=== PATIENT | male | born 1965 | race Caucasian/White ===

== ENCOUNTER 2021-09-14 03:46 | Emergency (ER) | payer OTHER ==
[2021-09-14] MEDS ORDERED: Lidocaine 2% Viscous Solution 15 ML UD PO ONE (04:35)
[2021-09-14] MEDS ORDERED: Acetaminophen/HYDROcodone 325-5 MG Tab PO ONE (04:36)
[2021-09-14 05:16] LABS: CORONAVIRUS COVID-19 NAA POSITIVE (NEGATIVE); INFLUENZA A NAA NEGATIVE (NEGATIVE); INFLUENZA B NAA NEGATIVE (NEGATIVE)
[2021-09-14 05:39] VITALS: BP 142/84; PULSE 96
== END 2021-09-14 05:39 | disposition home or self-care (01) ==
LOC: MW.ED 03:46
DX: U07.1 COVID-19 (principal); K02.9 Dental caries, unspecified; Z72.0 Tobacco use
CPT/HCPCS: 0240U; 99283; A9270

== ENCOUNTER 2022-07-09 13:37 | Emergency (ER) | payer OTHER ==
[2022-07-09] MEDS ORDERED: Sodium Chloride 0.9% 10 ML Syringe FLUSH PRN (13:39)
[2022-07-09] MEDS ORDERED: Sodium Chloride 0.9% 1,000 ML IV ONE (13:39)
[2022-07-09] MEDS ORDERED: Sodium Chloride 0.9% 2.5 ML Syringe FLUSH PRN (13:39)
[2022-07-09] MEDS ORDERED: Aspirin 81 MG Tab.Chew PO ONE (13:47)
[2022-07-09 14:31] LABS: CARBON DIOXIDE,CO2 28.5 mmol/L (21.0-32.0); POTASSIUM,K 3.6 mmol/L (3.5-5.1)
[2022-07-09 15:38] VITALS: BP 133/74; PULSE 78
== END 2022-07-09 15:36 | disposition home or self-care (01) ==
LOC: MW.ED 13:37
DX: R07.89 Other chest pain (principal)
CPT/HCPCS: 36415; 71045; 80053; 81003; 84484; 85025; 93005; 96360; 99285; A9270; J3490; J7030

== ENCOUNTER 2022-08-06 06:33 | Day surgery (SDC) | payer OTHER ==
[~2022-08-06 06:33] MED LIST: Lactated Ringers 1,000 ML IV SCH; Sodium Chloride 0.9% 10 ML Syringe FLUSH PRN; Sodium Chloride 0.9% 2.5 ML Syringe FLUSH PRN; Sodium Chloride 0.9% 20 ML SDV IV PRN
[2022-08-06] MEDS ORDERED: Ropivacaine 0.5% 5 MG/ML 30 ML SDV ONE (07:28)
[2022-08-06] MEDS ORDERED: Bupivacaine 0.5% 30 ML SDV ONE (07:28)
[2022-08-06] MEDS ORDERED: Propofol 200 MG/20 ML SDV ONE (07:33)
[2022-08-06] MEDS ORDERED: fentaNYL 100 MCG/2 ML SDV ONE (07:33)
[2022-08-06] MEDS ORDERED: Rocuronium Bromide 50 MG/5 ML Syringe ONE (07:33)
[2022-08-06] MEDS ORDERED: Dexamethasone 4 MG/ML 5 ML MDV ONE (07:33)
[2022-08-06] MEDS ORDERED: Sugammadex Sodium 200 MG/2 ML VIAL ONE (07:33)
[2022-08-06] MEDS ORDERED: Lidocaine 2% 5 ML SDV ONE (07:33)
[2022-08-06] MEDS ORDERED: Ondansetron 4 MG/2 ML SDV ONE (07:33)
[2022-08-06] MEDS ORDERED: ceFAZolin 2 GM Vial ONE (07:33)
[2022-08-06] MEDS ORDERED: Water For Injection, Sterile 20 ML ONE (07:34)
[2022-08-06] MEDS ORDERED: Morphine 2 MG/ML SYRINGE IVPUSH PRN (08:17)
[2022-08-06] MEDS ORDERED: Ondansetron 4 MG/2 ML SDV IVPUSH PRN (08:17)
[2022-08-06] MEDS ORDERED: fentaNYL 50 MCG/ML SDV IVPUSH PRN (08:17)
[2022-08-06] MEDS ORDERED: Albuterol 0.083% 2.5 MG/3 ML Neb Soln NEB PRN (08:17)
[2022-08-06] MEDS ORDERED: HYDROmorphone 1 MG/ML Syringe IVPUSH PRN (08:17)
[2022-08-06] MEDS ORDERED: Metoclopramide 10 MG/2 ML SDV IVPUSH PRN (08:17)
[2022-08-06] MEDS ORDERED: Naloxone 0.4 MG/ML SDV IVPUSH PRN (08:17)
[2022-08-06] MEDS ORDERED: Glycopyrrolate 0.2 MG/ML SDV ONE ×2 (08:27)
[2022-08-06] MEDS ORDERED: Ketorolac 30 MG/ML SDV ONE (09:16)
[2022-08-06 10:37] VITALS: BP 130/82; PULSE 49
[2022-08-06] MEDS ORDERED: ceFAZolin 2 GM in Premix Bag 1 BAG IV ONE (12:18)
== END 2022-08-06 11:05 | disposition home or self-care (01) ==
LOC: MW.SDS 06:33
PROVIDERS: ATTEND Surgery
DX: K40.90 Unilateral inguinal hernia, without obstruction or gangrene, not specified as recurrent (principal); F17.210 Nicotine dependence, cigarettes, uncomplicated; Z98.890 Other specified postprocedural states; Z86.16 Personal history of COVID-19
CPT/HCPCS: 49505; J0131; J0690; J1100; J1885; J2704; J2795; J3010; J3490; J7120; C1781; J2405